=== PATIENT | male | born 1995 | race Caucasian/White ===

== ENCOUNTER 2018-06-08 07:20 | Emergency (ER) | payer OTHER ==
[2018-06-08] MEDS ORDERED: IBUPROFEN 600 MG TAB PO ONE (07:50)
--- NOTE | 2018-06-08 08:01 | EDPHY ---
HPI/HX/ROS/PE/MDM Narrative: CHIEF COMPLAINT: Left foot injury HPI: This patient is a healthy 23-year-old male who presents with left foot pain secondary to accidentally stepping on a rake this morning. He heard a flurry of activity outside and squawking ducks, and ran to check on them. He was wearing flip-flops, and in his haste, stepped on a weed rake that had been left on the ground, tines up. These went through the sole of his flip-flops and into his left foot. He was able to pull the tines out of his foot himself, but sustained three deep puncture wounds. He complains of some unusual sensation in his foot including numbness. He did not sustain any other trauma, denies any falls or striking his head. He denies any recent illness and has no further complaints. REVIEW OF SYSTEMS: A comprehensive 10 system review of systems is otherwise negative aside from elements mentioned in the history of present illness and medical decision making. PMH: PTSD, ADHD, anxiety. SOCIAL HISTORY: Single. Employed. Lives in [place]. PHYSICAL EXAM: General:Patient is alert, in no acute distress. Respiratory: No respiratory distress. Cardiovascular: Regular rate and rhythm. Strong peripheral pulses. Normal cap refill. Skin: Normal color. No rash. Warm and dry. Extremities: Three puncture wounds form a line on the plantar surface of the left foot in the area of the metatarsals. He has very mildly diminished sensation of the middle left toe. Capillary refill is normal. Full range of motion. Neuro: Oriented x3. Normal motor function. Normal sensory function other than diminished sensation in left middle toe, noted above. ED Course: 23 y/o male presents with left foot pain secondary to three puncture wounds sustained this morning when he accidentally stepped on a weed rake. On exam, the patient has some decreased sensation to his middle toe on the left foot. Plan for x-ray of left foot. Plan to clean wounds under standard ED protocol. I offered numbing medication for pain relief, but the patient declines. Plan to administer 600mg PO ibuprofen for pain relief. 08:08 Reviewed x-ray of left foot. No acute abnormalities noted. Radiologist report pending. Plan to clean wounds as above. Plan to discharge home in good condition with prescription for Levaquin. He will follow up with podiatry within one week for further evaluation. The patient is comfortable with this plan. MDM: This patient presents with several plantar puncture wounds. His exam is normal other than very mildly decreased sensation of middle toe. Wounds were thoroughly irrigated and I will prescribe a flouroquinolone. Patient will need podiatry follow-up. I see no sign of FB or vascular injury. - Data Points Imaging: I viewed and interpreted images myself Medications Given: Discontinued Medications Ibuprofen (Motrin) 600 mg PO EDNOW ONE Stop: 06/08/18 07:51 Last Admin: 06/08/18 07:56 Dose: 600 mg General Time Seen by Provider: 06/08/18 07:30 Initial Vital Signs: Initial Vital Signs Temperature (C) 37 C 06/08/18 07:27 Heart Rate 96 06/08/18 07:27 Respiratory Rate 17 06/08/18 07:27 Blood Pressure 155/113 H 06/08/18 07:27 O2 Sat (%) 95 06/08/18 07:27 O2 Delivery Mode Room Air Allergies/Adverse Reactions: No Known Allergies Allergy (Verified 06/08/18 07:26) Home Medications: Medication Instructions Recorded levOFLOXACIN [levAQUIN (*)] 750 mg PO DAILY #5 tab 06/08/18 Departure - Departure Disposition: Home, Routine, Self-Care Clinical Impression: Puncture wound of left foot excluding toes without complication Qualifiers: Encounter type: initial encounter Qualified Code(s): S91.332A - Puncture wound without foreign body, left foot, initial encounter Condition: Good Instructions: Puncture Wound (ED) Additional Instructions: 1. Follow up with a automotive service director within one week. We have referred you to our automotive service director marketing communications leader. 2. Keep the wounds clean and dry. 3. Return to the Emergency Department for fever, redness, discharge from wound, increasing pain or other worsening of condition. 4. Take Levaquin as prescribed. It is important to finish your entire course of antibiotics. 5. Take ibuprofen 600mg every 6-8 hours as needed for pain. You may also take Tylenol 650mg every 4-6 hours as needed for pain. Referrals: Nidhi Angelo DPM [Doctor of Podiatric Medicine] - As per Instructions Prescriptions: levOFLOXACIN [levAQUIN (*)] 750 mg PO DAILY #5 tab Report Scribed for: Julio Sarmiento Report Scribed by: Tiffany Lopez Date of Report: 06/08/18 Time of Report: 08:04 Physician Review and Approval Statement: Portions of this note were transcribed by an ED scribe. I personally performed the history, physical exam, and medical decision making; and confirm the accuracy of the information in the transcribed note.
[2018-06-08 08:47] VITALS: BP 161/85
== END 2018-06-08 08:39 | disposition home or self-care (01) ==
DX: S91.332A Puncture wound without foreign body, left foot, initial encounter (principal); W27.1XXA Contact with garden tool, initial encounter